=== PATIENT | female | born 1955 | race African-American/Black ===

== ENCOUNTER 2021-08-28 14:19 | Observation (INO) ==
[2021-08-28 14:47] LABS: Basophils % 0.2 % (0.0-0.8); Eosinophils # 0.1 10*3/uL (0.0-0.87); Eosinophils % 1.9 % (0.00-10.9); Hematocrit 39.6 VOL% (35.7-47.0); Hemoglobin 12.7 GM/DL (12.0-16.0); Immature Granulocytes % 0.2 %; Immature Granulocytes Absolute 0.01 #; Lymphocytes # 1.3 10*3/uL (1.4-4.0); Mean Corpuscular HGB Conc 32.1 GM/DL (32-36); Mean Corpuscular Volume 80.7 FL (87-102); Mean Platelet Volume 12.1 FL (9.6-12.0); Monocytes % 7.4 % (1.7-12.7); Neutrophils % 62.3 % (38.7-73.9); Platelet Count 185 T/CUMM (130-400); Red Blood Count 4.91 MC/CUMM (3.8-5.5); Red Cell Distribution Width 13.9 % (9.3-17.3); White Blood Count 4.7 T/CUMM (4-12)
[2021-08-28 15:08] LABS: Albumin 3.4 G/DL (3.4-5.0); Bilirubin,Total 0.6 MG/DL (0.20-1.00); Calcium 9.4 MG/DL (8.5-10.1); Osmolality,Calculated 278.4 MOS/KG (273-304); Potassium 3.1 MMOL/L (3.5-5.1); Total Protein 8.2 G/DL (6.4-8.2)
[2021-08-28 15:49] LABS: Eosinophils 2 % (0-10); Lymphocytes 25 % (20-55); Segmented Neutrophils 64 % (50-85); Total Cells Counted 100
[2021-08-28 15:50] LABS: Hypochromia 1+; Microcytosis Slight; Platelet Estimate Normal
[2021-08-28] MEDS ORDERED: POTASSIUM CHLORIDE 20 MEQ TABLET PO STA (22:05)
[2021-08-28] MEDS ORDERED: ASPIRIN EC 325 MG TABLET PO STA (22:14)
[2021-08-28] MEDS ORDERED: NITROGLYCERIN SL 0.4 MG TABLET SL STA (22:14)
[2021-08-28] MEDS ORDERED: ONDANSETRON 4 MG/2 ML VIAL IV ONE (23:27)
[2021-08-28] MEDS ORDERED: fentaNYL 100 MCG/2 ML VIAL IV STA (23:27)
[2021-08-29] MEDS ORDERED: ONDANSETRON 4 MG/2 ML VIAL IV PRN (00:23)
[2021-08-29] MEDS ORDERED: GLUCAGON 1 MG VIAL IM PRN (00:23)
[2021-08-29] MEDS ORDERED: NITROGLYCERIN SL 0.4 MG TABLET SL PRN (00:27)
[2021-08-29] MEDS ORDERED: DEXTROSE 10% 250 ML BAG IV PRN ×2 (00:28→01:00)
[2021-08-29] MEDS ORDERED: ENOXAPARIN 40 MG/0.4 ML SYRINGE SUBCUT SCH (01:00)
[2021-08-29 03:46] LABS: Basophils % 0.4 % (0.0-0.8); Eosinophils # 0.2 10*3/uL (0.0-0.87); Eosinophils % 3.6 % (0.00-10.9); Hematocrit 39.9 VOL% (35.7-47.0); Hemoglobin 12.5 GM/DL (12.0-16.0); Immature Granulocytes % 0.2 %; Immature Granulocytes Absolute 0.01 #; Lymphocytes # 1.4 10*3/uL (1.4-4.0); Lymphocytes % 27.3 % (21.3-54.2); Mean Corpuscular HGB Conc 31.3 GM/DL (32-36); Mean Corpuscular Volume 81.9 FL (87-102); Mean Platelet Volume 13.3 FL (9.6-12.0); Monocytes % 6.7 % (1.7-12.7); Neutrophils % 61.8 % (38.7-73.9); Platelet Count 183 T/CUMM (130-400); Red Blood Count 4.87 MC/CUMM (3.8-5.5); Red Cell Distribution Width 13.9 % (9.3-17.3); White Blood Count 5.1 T/CUMM (4-12)
[2021-08-29 04:07] LABS: Calcium 8.8 MG/DL (8.5-10.1); Osmolality,Calculated 276.5 MOS/KG (273-304); Potassium 3.4 MMOL/L (3.5-5.1)
[2021-08-29 04:16] LABS: Risk Ratio 3.65
[2021-08-29] MEDS ORDERED: POTASSIUM CHLORIDE 20 MEQ TABLET PO PRN (07:19)
[2021-08-29] MEDS ORDERED: PANTOPRAZOLE 40 MG TABLET PO SCH (09:00)
[2021-08-29] MEDS ORDERED: ASPIRIN EC 81 MG TABLET PO SCH (09:00)
[2021-08-29] MEDS ORDERED: METOPROLOL TARTRATE 25 MG TABLET PO SCH (09:00)
[2021-08-29] MEDS ORDERED: POTASSIUM CHLORIDE 20 MEQ TABLET PO ONE (09:46)
[2021-08-29 10:59] VITALS: BP 138/85
[2021-08-29] MEDS ORDERED: ATORVASTATIN 40 MG TABLET PO SCH (21:00)
== END 2021-08-29 11:09 | disposition home or self-care (01) ==
LOC: N.ED 14:19 → N.EDINP 14:19 → SUATTDRO 08-29 00:23 → N.EDINP 08-29 11:30
PROVIDERS: ADMIT Internal Medicine; ATTEND Internal Medicine